=== PATIENT | male | born 1980 | race Caucasian/White ===

== ENCOUNTER 2024-11-01 19:17 | Emergency (ER) | payer OTHER, SELFPAY ==
[2024-11-01] VITALS (7 sets, daily range): BP systolic 126–147; BP diastolic 94–107; PULSE 74–83; RESP 14–18; TEMP 36.6; O2SAT 96–98
--- NOTE | 2024-11-01 19:28 | ED_ITS ---
HPI - General Adult General Chief complaint: Unspecified Stated complaint: High BP Time Seen by Provider: 11/01/24 19:23 Source: patient Mode of arrival: ambulatory Limitations: no limitations History of Present Illness HPI narrative: 44 year old male presents to the Emergency Department complaining of blood pressure elevated today. History of hypertension. Takes Lisinopril 10 mg every day, and has had it today. Denies chest pain, shortness of breath. Had a little bit of headache. No visual changes. States he had a sudden gush of blood from right nares. last for few seconds and stopped spontaneously. No recent cough or cold symptoms. Onset (ago): hour(s) Relieving factors: none Exacerbating factors: none Associated symptoms: denies other symptoms Related Data Home Medications ?Medication ?Instructions ?Recorded ?Confirmed ?Last Taken ?Type lisinopril 10 mg tablet 10 mg PO DAILY 11/01/24 11/01/24 Unknown History venlafaxine 100 mg tablet 150 mg PO TID 11/01/24 11/01/24 Unknown History Allergies Allergy/AdvReac Type Severity Reaction Status Date / Time No Known Allergies Allergy Verified 11/01/24 20:15 Review of Systems Review of Systems: All systems reviewed & are unremarkable except as noted in HPI and below Constitutional: Constitutional: Reports as per HPI and Reports no additional constitutional complaints Eyes: Eyes: Reports as per HPI and Reports no additional eye complaints ENT: Reports system reviewed and no additional complaints, except as documented and Reports epistaxis (for few seconds, resolved spontaneously) Cardiovascular: Cardiovascular: Reports as per HPI, Denies chest pain, Denies chest pain at rest, Denies chest pain with activity, Denies rapid heart rate, Denies irregular heart rhythm, Denies lightheadedness, Denies dyspnea and Denies slow heart rate Respiratory: Respiratory: Reports as per HPI and Denies dyspnea Gastrointestinal: Gastrointestinal: Reports as per HPI, Denies abdominal pain, Denies diarrhea, Denies nausea and Denies vomiting Genitourinary: Genitourinary: Reports no additional male genitourinary complaints Musculoskeletal: Musculoskeletal: Reports no additional musculoskeletal complaints Integumentary/Breasts: Skin/Breast: Reports system reviewed and no additional complaints, except as docu Neurologic: Reports system reviewed and no additional complaints, except as documented, Denies dizziness and Denies Other visual disturbances Endocrine: Endocrine: Reports no additional endocrine complaints Hematologic/Lymphatic: Hematologic/Lymphatic: Reports no additional hematologic/lymphatic complaints Allergic/Immunologic: Allergic/Immunologic: Reports no additional allergic/immunologic complaints Exam Const: General: healthy appearing, no acute distress, well developed and alert HENMT: Head: normal to inspection Face/Nose/Sinus: Normal external nose present, Abnormal mucous membranes and turbinates present (mild hyperemia right nasal mucosa) and normal facial exam Mouth: Yes Normal oral and palatal mucosa present Throat: posterior oropharynx normal Eyes: General: appearance normal, both eyes and all related structures Pupils: Equal, round and reactive pupils present EOM: EOMs intact bilaterally Neck: Neck: normal visual inspection, no meningeal signs and no JVD Thyroid: thyroid normal Carotids: no bruits Chest: Chest palpation & inspection: normal inspection of the chest Resp: Effort & Inspection: normal respiratory effort Auscultation: clear to auscultation bilaterally Cardio: Jugular venous distension: no JVD Rate: regular rate Rhythm: regular rhythm GI: Inspection: normal to inspection and non-distended GI Palp: No Tenderness to palpation present (GI) : General: Yes no CVA tenderness Skin: General skin exam: turgor normal Neuro: General: patient oriented x3, no focal motor deficits and CN's II-XI intact bilaterally Extrem: General: normal to inspection and no clubbing, cyanosis or edema Psych: Appearance: grossly normal Course Course Emergency Course: 44 y/o male presents to the ED c/o elevated blood pressure. Hx HTN, takes Lisinopril. Had epistaxis R nares for several seconds, which resolved spontaneously. PE: R nares hyperemic, o/w unremarkable EKG: NSR, 70, NAC Tx: BP monitor [trending down, last 128/94] Instructions Vital Signs Vital signs: Vital Signs Temperature 36.6 C 11/01/24 19:19 Pulse Rate 82 11/01/24 19:19 Respiratory Rate 16 11/01/24 19:19 Blood Pressure 147/107 H 11/01/24 19:19 Pulse Oximetry 97 11/01/24 19:19 Oxygen Delivery Room Air 11/01/24 19:19 Temperature 36.6 C 11/01/24 19:19 Pulse Rate 78 11/01/24 20:01 Respiratory Rate 17 11/01/24 20:01 Blood Pressure 128/94 H 11/01/24 20:01 Pulse Oximetry 97 11/01/24 20:01 Oxygen Delivery Room Air 11/01/24 19:35 Medical Decision Making Vital Signs Vital Signs: Vital Signs Temperature 36.6 C 11/01/24 19:19 Pulse Rate 82 11/01/24 19:19 Respiratory Rate 16 11/01/24 19:19 Blood Pressure 147/107 H 11/01/24 19:19 Pulse Oximetry 97 11/01/24 19:19 Oxygen Delivery Room Air 11/01/24 19:19 Temperature 36.6 C 11/01/24 19:19 Pulse Rate 78 11/01/24 20:01 Respiratory Rate 17 11/01/24 20:01 Blood Pressure 128/94 H 11/01/24 20:01 Pulse Oximetry 97 11/01/24 20:01 Oxygen Delivery Room Air 11/01/24 19:35 Discharge Plan Discharge Clinical Impression: Hypertension, Epistaxis Patient Disposition: Home, Self-Care Condition: Stable Instructions: Nosebleed (ED), Hypertension (ED) Additional Instructions: Rest Keep diary of your blood pressure readings for you Primary Care Physician to review If nose bleeds again, apply direct pressure, or use cotton ball soaked with Afrin or NeoSynephrine to control Follow up Primary Care Physician Return as needed Patient Language: [place]ic Follow-up/Referrals: [place],Lyn Johnson MD [Primary Care Provider] - Time of Disposition: 20:18
--- NOTE | 2024-11-01 19:32 | ECG_ITS ---
Test Date: 2024-11-01 19:55:01 Measurements Intervals [place] Rate: 70 P: 19 DE: 135 QRS: -23 QRSD: 94 T: 49 QT: 374 QTc: 406 Interpretive Statements SINUS RHYTHM BORDERLINE LEFT AXIS DEVIATION [QRS AXIS < -20] INCOMPLETE RIGHT BUNDLE BRANCH BLOCK [90+ ms QRS DURATION, TERMINAL R IN V1/V2, 40+ ms S IN I/aVL/V4/V5/V6] No previous ECG available for comparison Electronically Signed On 11-03-2024 12:33:03 [employer]OLOG[employer] SALES REPRESENTATIVE by Asa Jimenes M.D.
--- NOTE | 2024-11-01 19:37 | PC.NURSE ---
PLACED ON SCREEN PR[employer]ING [employer]ER.
--- NOTE | 2024-11-01 20:08 | PC.NURSE ---
PATIENT RESTING QUIETLY ON STRETCHER WITH AT HIS SIDE. CALL LIGHT IN REACH. DR FLANAGAN AT THE BEDSIDE. UPDATED ON VITALS THAT HAVE BEEN RECORDED
== END 2024-11-01 20:42 | disposition home or self-care (01) ==
PROVIDERS: Emergency Provider Emergency Medicine; PCP Internal Medicine
DX: I10 Essential (primary) hypertension (principal); R04.0 Epistaxis; Z79.899 Other long term (current) drug therapy
CPT/HCPCS: 93005; 99283

== ENCOUNTER 2025-03-10 13:34 | Emergency (ER) | payer OTHER, SELFPAY ==
--- NOTE | ~2025-03-10 | XR_ITS ---
EXAMINATION: XR chest 1V portable 03/10/2025 13:48 INDICATION: Left-sided chest pain PROCEDURE: AP portable chest COMPARISON: 09/25/2010 FINDINGS: The lungs are clear. The cardiomediastinal silhouette is within normal limits. There are no pleural effusions. There is no pneumothorax suspected. IMPRESSION: 1: NO ACUTE CARDIOPULMONARY DISEASE. Reviewed, dictated and finalized at location A.
[2025-03-10 13:34] VITALS: BP 139/96; PULSE 80; RESP 16; TEMP 36.5; O2SAT 99
--- NOTE | 2025-03-10 13:35 | ECG_ITS ---
Test Date: 2025-03-10 13:43:49 Measurements Intervals [place] Rate: 70 P: 15 SD: 134 QRS: 15 QRSD: 106 T: 47 QT: 375 QTc: 405 Interpretive Statements SINUS RHYTHM Compared to ECG 11/01/2024 19:55:01 Incomplete right bundle-branch block no longer present Electronically Signed On 03-10-2025 15:01:48 CDT by Asa Jimenes M.D.
[2025-03-10 13:36] VITALS: PULSE 73
--- OUTSIDE RECORDS SUMMARY | 2025-03-10 13:36 | XMS_ITS | Data Portability ---
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 Blood pressure was rechecked today and I got a little higher yet at 142/100. I think he needs to go back on the blood pressure medication lisinopril. I placed him back on the 5 mg tablet. He will monitor his blood pressure several times per week. We discussed risks versus benefits and possible side effects medication. 2. I have placed him on the Chantix and gave him 3 months of refills. We discussed risk first benefits and possible side effects medication. If he wants to continue it longer than 3 months to study show that there can be long-term benefit. 3. His labs are being done today. I will let him know those results either by mail or by phone. 4. He needs refill of a atorvastatin sent to the pharmacy today. That is done for 6 months. Discussed with the patient they will be notified of results by patient portal or by mail. They will be notified of results by phone, only if results require immediate attention. Patient verbalizes understanding and agreement with the treatment plan. Patient will continue to follow-up for acute health issues and routine medication checks. [email or web address] Not available 07/19/2024 16:36:35 12/09/2024 12/09/2024 Discussed otitis externa. Placed him on ofloxacin drops. Discussed proper application by having the right ear faced towards the ceiling applying the 5 drops and leaving it sit in the ear for at least 5 minutes. There is no need to put cotton in the ear. We discussed risk first benefits and possible side effects medication. If he does not see improvements by Thursday or Thursday he should call for further guidance. If he has worsening of symptoms he should follow-up sooner. I do want him to make a follow-up appointment for right around 10 days to take a look at that ear since we could not visualize the tympanic membrane. Patient verbalizes understanding and agreement with the treatment plan. Patient will continue to follow-up for acute health issues and routine medication checks. [email or web address] Not available 12/09/2024 11:38:29 12/23/2024 12/23/2024 The otitis externa has resolved. He should not use Q-tips in the ears. We will get him referred to Dr. Castro here at [facility] for colonoscopy. We will let him know that appointment time. Patient verbalizes understanding and agreement with the treatment plan. Patient will continue to follow-up for acute health issues and routine medication checks. [email or web address] Not available 12/23/2024 14:09:21 Plan of Treatment Reminders Order Date Submit Date Provider Last Modified By Organization Details Last Modified Time Details Appointments Acute 15.ACU 2024 04:30P M Dr. Lyn Church Not available Not available Not available Lab None recorded . Referral None recorded . Procedures None recorded . Surgeries None recorded . Imaging None recorded . Medication Orders ofloxaci n 0.3 % ear drops 2024 025 [facility]armacy #[id number], [address] [place], [address], 12/23/2024 13:58:13 Chantix Starting Month Box 0.5 mg (11)-1 mg (42) tablets in dose pack 2023 024 [facility]/Pharmacy #[id number], [address] [place], [address], 12/09/2024 10:50:56 Chantix Continui ng Month Box 1 mg tablet 2023 024 [email or web address] [facility]/Pharmacy #[id number], [address] [place], [address], 12/23/2024 13:58:00 atorvast atin 10 mg tablet 2023 024 [facility]/Pharmacy #[id number], [address] [place], [address], 07/19/2024 14:40:10 lisinopr il 5 mg tablet 2023 025 [facility]/Pharmacy #[id number], [address] [place], [address], 12/09/2024 10:51:06 Patient TargetsNo targets recorded. Patient InstructionsNo instructions recorded. Reason for Referral None Reported. Results Created Date Observation Date Name Description Value Unit Range Abnormal Flag Note LastModifiedBy Organization Detail LastModifiedTime 07/19/2007/19/2024 lipid panel , serum lipid profile Not Available [facility] [address] [place] [address], [address], 07/19/2024 18:36:48 07/19/2007/19/2024 lipid panel , serum cholesterol 217 mg/dL <25-20 0 high Not Available [facility] [address] [place] [address], [address], 07/19/2024 18:36:48 07/19/2007/19/2024 lipid panel , serum triglyceride 266 mg/dL 15-200 high Not Available [facility] [address] [place] [address], [address], 07/19/2024 18:36:48 07/19/2007/19/2024 lipid panel , serum HDL 33 mg/dL >40 low Not Available [facility] [address] [place] [address], [address], 07/19/2024 18:36:48 07/19/20 24 07/19/2024 lipid panel , serum LDL, calculated 131 mg/dL 5-100 high Not Available [facility] [address] [place] [address], [address], 07/19/2024 18:36:48 07/19/2007/19/2024 lipid panel , serum VLDL 53 mg/dL 1-40 high Not Available [facility] [address] [place] [address], [address], 07/19/2024 18:36:48 07/19/2007/19/2024 lipid panel , serum chol/HDL 6.6 ratio 0.0-4. 4 high Not Available [facility] [address] [place] [address], [address], 07/19/2024 18:36:48 07/19/2007/19/2024 CMP, serum or plasm a comp. met. panel Not Available [facility] [address] [place] [address], [id number], 07/19/2024 18:39:46 07/19/2007/19/2024 CMP, serum or plasm a sodium 139 mmol/ L 136-14 6 Not Available [facility] [address] [place] [address], [address], 07/19/2024 18:39:46 07/19/2007/19/2024 CMP, serum or plasm a potassium 3.6 mmol/ L 3.5-5. 1 Not Available [facility] [address] [place] [address], [address], 07/19/2024 18:39:46 07/19/2007/19/2024 CMP, serum or plasm a chloride 107 mmol/ L 98-110 Not Available [facility] [address] [place] [address], [address], 07/19/2024 18:39:46 07/19/20 24 07/19/2024 CMP, serum or plasm a CO2 28 mEq/L 20-32 Not Available [facility] [address] [place] [address], [address], 07/19/2024 18:39:46 07/19/2007/19/2024 CMP, serum or plasm a anion gap 8 mmol/ L 10-22 low Not Available [facility] [address] [place] [address], [address], 07/19/2024 18:39:46 07/19/2007/19/2024 CMP, serum or plasm a glucose 111 mg/dL 70-100 high Not Available [facility] [address] [place] [address], [address], 07/19/2024 18:39:46 07/19/2007/19/2024 CMP, serum or plasm a calcium 9.8 mg/dL 8.4-10 .4 Not Available [facility] [address] [place] [address], [address], 07/19/2024 18:39:46 07/19/2007/19/2024 CMP, serum or plasm a total protein 6.9 g/dL 6.4-8. 3 Not Available [facility] [address] [place] [address], [address], 07/19/2024 18:39:46 07/19/2007/19/2024 CMP, serum or plasm a albumin 4.6 g/dL 3.5-5. 3 Not Available [facility] [address] [place] [address], [address], 07/19/2024 18:39:46 07/19/2007/19/2024 CMP, serum or plasm a ALP 92 U/L 44 - 127 Not Available [facility] [address] [place] [address], [address], 07/19/2024 18:39:46 07/19/2007/19/2024 CMP, serum or plasm a AST (SGOT) 23 U/L 10-40 Not Available [facility] [address] [place] [address], [address], 07/19/2024 18:39:46 07/19/2007/19/2024 CMP, serum or plasm a total bilirubin 0.5 mg/dL 0.2-1. 0 Not Available [facility] [address] [place] [address], [address], 07/19/2024 18:39:46 07/19/2007/19/2024 CMP, serum or plasm a ALT (SGPT) 30 U/L 8-35 Not Available [facility] [address] [place] [address], [address], 07/19/2024 18:39:46 07/19/2007/19/2024 CMP, serum or plasm a BUN 12 mg/dL 7-21 Not Available [facility] [address] [place] [address], [address], 07/19/2024 18:39:46 07/19/2007/19/2024 CMP, serum or plasm a creatinine 1.0 mg/dL 0.7-1. 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 ) Not Available [facility] [address] [place] [address], [address], 07/19/2024 18:39:46 Result Notes None recorded. Problems Name Problem SNOMED Code Status Onset Date Resolution Date Notes Provider Name and Address Organization Details Recorded Time Benign essentia l hyperten sunday 3379640 Active 2023 Calos Aleman PA-C [address] [place] [address], [address], [facility] 4 14:35:53 Erectile dysfunct ion 808741283 Completed 202307/19/2024 Calos Aleman PA-C [address] [place] [address], [address], [facility] 4 16:37:15 Gastroes ophageal reflux disease 536261053 Completed 202307/19/2024 Calos Aleman PA-C [address] [place] [address], [address], [facility] 4 16:37:24 Chronic pain 20211282 Completed 202307/19/2024 Calos Aleman PA-C [address] [place] [address], [address], [facility] 4 16:37:43 Anxiety 25363227 Completed 202307/19/2024 Calos Aleman PA-C [address] [place] [address], [address], [facility] 4 16:37:51 Low back pain 795179645 Active 2023 Calos Aleman PA-C [address] [place] [address], [address], [facility] 4 10:40:18 Acute otitis externa of right ear 98720011916 09729 Active 2024 Calos Aleman PA-C [address] [place] [address], [address], [facility] 5 10:59:14 Hyperlip idemia 04415209 Active [address] [facility] 4 02:52:17 Problem Notes None recorded. Procedures Surgical History Date Name Laterality Status Provider Name and Address Organization Details Recorded Time laparoscopic cholecystectomy completed Calos Aleman PA-C [address] [place] [address], [phone], [facility] 07/19/2024 16:38:57 procedure on ankle completed Freddy Aleman PA-C [address] [place] [address], [phone], [facility] 07/19/2024 16:39:54 Imaging Results None recorded. Procedure Notes None recorded. Medical Equipment None Reported. Allergies Allergen ID Allergen Name Allergen Category Reaction Reaction Severity Criticality Documentation Date Start Date Code Code System Note Provider Name and Address Organization Details Recorded Time 386237 varenicli ne tartrate medicatio n rash Not available Not available 11/09/20232019 55850 4 RxNorm React ion: Rash; Not Available [facility] 4 23:27:43 Medications Name Sig Start Date Stop Date Status Note LastModified by Organization Details LastModified Time sildenafil 50 mg tablet TAKE 1 TABLET 1 HOUR BEFORE NEEDED. MAX 2 TABLETS IN A 24 HOUR PERIOD. 07/19 completed Not Available Not Available Not Available atorvastati n 10 mg tablet TAKE 1 TABLET BY MOUTH EVERYDAY AT BEDTIME active Not Available Not Available No t Available venlafaxine ER 150 mg capsule,ext ended release 24 hr TAKE 1 CAPSULE BY MOUTH EVERY DAY active Not Available Not Available No t Available ofloxacin 0.3 % ear drops INSTILL 5 DROPS AFFECTED EAR (S) TWICE A DAY FOR 10 DAYS 12/23 completed Not Available Not Available Not Available amoxicillin 875 mg tablet TAKE 1 TABLET BY MOUTH TWICE A DAY FOR 5 DAYS 12/23 completed Not Available Not Available Not Available lisinopril 10 mg tablet TAKE 1 TABLET BY MOUTH EVERY DAY active Not Available Not Available No t Available lisinopril 5 mg tablet TAKE 1 TABLET BY MOUTH EVERY DAY 12/09 completed Not Available Not Available Not Available lorazepam 1 mg tablet TAKE 1/2 TO 1 TABLET 3 TIMES DAILY NEEDED. active Not Available Not Available No t Available tadalafil 10 mg tablet TAKE 1 TABLET 30 MINUTES BEFORE ACTIVITY NEEDED. active Not Available Not Available No t Available varenicline tartrate 1 mg tablet TAKE 1 TABLET BY MOUTH TWICE A DAY 12/23 completed Not Available Not Available Not Available Vitals Date Recorded Body height Body mass index (BMI) Body weight Body temperature Heart rate Oxygen saturation Oxygen saturation in Arterial blood by Pulse oximetry Systolic blood pressure Diastolic blood pressure Provider Name and Address Organization Details Last Updated DateTime 5 180.34 cm 30.7 kg/m2 30978.3 2 g 97.7 [degF] 62 /min 99 % 99 % 124 mm[Hg] 88 mm[Hg] [facility] 5 10:50:09 Date Recorded Body height Body mass index (BMI) Body weight Body temperature Heart rate Oxygen saturation Oxygen saturation in Arterial blood by Pulse oximetry Systolic blood pressure Diastolic blood pressure Provider Name and Address Organization Details Last Updated DateTime 5 180.34 cm 30.8 kg/m2 838957. 91 g 98.4 [degF] 77 /min 97 % 97 % 118 mm[Hg] 80 mm[Hg] [facility] 5 13:57:27 Date Recorded Body height Body mass index (BMI) Body weight Body temperature Systolic blood pressure Diastolic blood pressure Provider Name and Address Organization Details Last Updated DateTime 4 180.34 cm 31.2 kg/m2 470179. 69 g 97.7 [degF] 138 mm[Hg] 96 mm[Hg] Christie Gray [facility] 4 14:08:05 Social History Question Answer Notes LastModified by Organizat ion Details LastModified Time Tobacco Smoking Status Former Smoker Not Available Health Note 09/09/2024 09:51:38 Do You Have An Advance Directive? No [email or web address] Information not available 09/09/2024 What Is Your Level Of Caffeine Consumption? Moderate [email or web address] Information not available 09/09/2024 How Many Times Per Week Do You Exercise? Less Than 1 Time Per Week [email or web address] Information not available 09/09/2024 When Did You Quit Smoking? Month Ago [email or web address] Information not available 09/09/2024 What Was The Date Of Your Most Recent Tobacco Screening? 09/14/2024 [email or web address] Information not available 09/09/2024 What Is Your Relationship Status? [email or web address] Information not available 09/09/2024 Sex: Unknown Functional Status Question Answer Note LastModified by Organizat ion Details LastModified Time Do you use any illicit or recreational drugs? No [email or web address] Information not available 09/09/2024 What is your level of alcohol consumption? None [facility]-[email or web address] Information not available 09/09/2024 Are you currently employed? 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 None [email or web address] Information not available 09/09/2024 Mental Status None recorded. Family History Relationship Description Onset Age of this Age Resolved Age Notes LastModified by Organization Details LastModified Time Father Polyp of colon [email or web address] Not available 2023 16:38:04 Father Hypertensive disorder [email or web address] Not available 2023 16:38:11 Father Diabetes mellitus [email or web address] Not available 2023 16:38:17 Father Atrial fibrillation [email or web address] Not available 05/2024 16:38:25 Father Heart disease [email or web address] Not available 2023 09:51:37 Sister Cerebrovascu lar accident [email or web address] Not available 05/2024 16:38:44 Mother Heart disease [email or web address] Not available 2023 09:51:37 Maternal Grandfather Heart disease [email or web address] Not available 2023 09:51:37 Maternal Grandmother Heart disease [email or web address] Not available 2023 09:51:37 Medical History Condition Response Diabetes N Anxiety Disorder Y Bleeding Disorder N Attention-deficit Hyperactivity Disorder N High Blood Pressure Y Arthritis N Hyperlipidemia N Cancer N Stroke N Thyroid Problems N Asthma N Depression Y COPD N Anemia N Seizures N Heart Disease N Fibromyalgia N Osteoporosis N Kidney Disease N Immunizations Vaccine Type Date Status Note Provider Nam e and Address Organization Details Recorded Time Influenza, split virus, quadrivalent, preservative 0 completed [facility] 10:50:33 COVID-19, mRNA, LNP-S, PF, 30 mcg/0.3 mL dose 1 completed Elinor Horton null, [facility] 12/09/2024 10:50:33 COVID-19, mRNA, LNP-S, PF, 30 mcg/0.3 mL dose 1 completed Elinor Horton null, [facility] 12/09/2024 10:50:33 COVID-19, mRNA, LNP-S, PF, 30 mcg/0.3 mL dose 1 completed [facility] 12/09/2024 10:50:33 COVID-19, mRNA, LNP-S, PF, 30 mcg/0.3 mL dose, karolina-sucrose 2 completed Elinor rocha, [facility] 12/09/2024 10:50:33 Tdap [address] [facility] 12/09/2024 10:50:33 Past Encounters Encounter ID Performer Location Encounter Start Date Encounter Closed Date Diagnosis/Indication Diagnosis SNOMED-CT Code Diagnosis ICD10 Code Diagnosis Note [id number] [facility] ([place] [address] 07/19/2024 13:51:19 07/19/2024 14:43:13 Ready to stop smoking 403895552 Z72.0 Benign ess ential hypertension 5294312 I10 Hyperlipidemia 13884174 E78.5 Long-term current use of drug therapy 772902228 Z79.899 Additional diagnosis detail: Other fdc (current) drug therapy [id number] [facility] [place] [address] 12/09/2024 10:35:16 12/09/2024 11:38:49 Acute otitis externa of right ear 6976874526 480875 H60.501 [id number] [facility] [address] [facility] [place] [address] 12/23/2024 13:52:10 12/23/2024 15:18:26 Screening for malignant neoplasm of colon 780468398 Z12.11 Acute otit is externa of right ear 0919638651 817425 H60.501 Health Concerns Section Related Observation LastModified by Organization Detai ls LastModified Time None Recorded Concern Status LastModified by Organization Details LastModified Time None Recorded Advance Directives Directive N: Payers Insurance Date Sequence Insurance Name Policy Number Policy Le Covered Member ID Le Member ID Guarantor Name 07/20/2024 1 [employer] - [facility] [employer] [id number] Calos Montgomery [id number] Calos Montgomery 02/26/2025 1 [employer] (POS II) [id number] Calos Montgomery [id number] Calos Montgomery Notes Date Note Type Note Provider Name and Address Organization Details Recorded Time 4 text/html The patient comes in today with complaint of elevated blood pressure and wanting to quit smoking. He quit smoking 3 years ago. He has done several times with Chantix. Chantix works very well for him. Takes about a week few days before he loses that benefit of the nicotine. He was off the cigarettes for 3 years this time and 3 months ago he picked up the cigarette again and wants to stop. He does have dreams with the Chantix but it is not bothersome to him. He feels that his blood pressure has been up. He was previously on blood pressure medication lisinopril. He does not remember have any problems with the medication. He gets just mild headache and just does not feel well when his blood pressure is up. He has not been checking it. He several years and lost about 60 pounds and was able to get off the medication. He is put about 30 of those pounds back on. He also started smoking again which he knows can elevate his blood pressure. He denies any blurred vision or double vision, numbness, tingling or weakness. No chest pains or shortness of breath. He does have orders in the lab from last visit. He has yet to get those done and will get them performed today. It is a metabolic panel and lipid panel. Calos Aleman PA-C [address] [place] [address], [phone], [facility] 07/20/2024 16:35:49 5 text/html Calos Dixon a 44 year oldmalepresenting for care. Patient was at the urgent care 2 weeks ago. He was diagnosed with a Right sided ear infection. His symptoms at that time were pain when he touched his ear. He had had discharge from the ear. He saw resolution of the pain after taking the amoxicillin but he continues to have drainage and reduced hearing from that right ear. He has not had fevers or chills. He denies other upper respiratory symptoms. He had a lot of ear infections as a child but never had tubes. Calos Aleman PA-C [address] [place] [address], [phone], [facility] 12/09/2024 11:38:42 5 text/html Calos Dixon a 44 year oldmalepresenting for care. The patient is here for a 2-week follow-up on the right otitis externa. I placed him on Cipro drops 2 weeks ago. He used them for 1 week. He feels that symptoms are completely resolved at this point. He is hearing fine and there has been no drainage from the ear. That was a follow-up from an urgent care visit where he was placed on amoxicillin for the ear infection. He also wanted to bring up that his sister was recently diagnosed with colon cancer. She is 46 years old. The patient turns for 45 in a couple weeks. He wants to get in to see GI for colonoscopy. Calos Aleman PA-C [address] [place] [address], [phone], [facility] 12/23/2024 14:10:17
--- NOTE | 2025-03-10 13:38 | ED_ITS ---
HPI - Chest Pain General Chief Complaint: Chest Pain Stated Complaint: chest tightness Time Seen by Provider: 03/10/25 13:35 Source: patient Mode of arrival: ambulatory Limitations: no limitations History of Present Illness HPI narrative: patient is a 45-year-old male with some left-sided chest pain that is sharp and reproducible in nature. It does radiate to his shoulder blade on the left. No numbness or tingling on his face or arm. No shortness of breath. He does have some family history with CAD and stents and they were around their 50s and 60s. The patient himself does not have any history of CAD. He has not had cardiac workups. MD complaint: chest pain Pertinent past history: other ( Hypertension) Onset (ago): week(s) ( 3) Timing of current episode: episodic, daily and still present Prior episodes: Yes Onset: during rest, during exertion and after eating Pain location: left chest Pain radiation: back and left scapula Severity: mild Pain scale (0-10): 5 Quality: sharp Relieving factors: nothing Exacerbating factors: palpation and movement Context: other ( patient having continued left-sided chest pain for the past 3 weeks has come for evaluation.) Treatment prior to arrival: none Risk Factors Coronary artery disease risk factors: hypertension Thoracic aortic dissection risk factors: none Related Data Home Medications ?Medication ?Instructions ?Recorded ?Confirmed ?Last Taken ?Type lisinopril 10 mg tablet 10 mg PO DAILY 11/01/24 11/01/24 Unknown History venlafaxine 100 mg tablet 150 mg PO TID 11/01/24 11/01/24 Unknown History Allergies Allergy/AdvReac Type Severity Reaction Status Date / Time No Known Allergies Allergy Verified 03/10/25 13:43 Review of Systems 2 Review of Systems: All systems reviewed & are unremarkable except as noted in HPI and below Constitutional: Constitutional: Reports no additional constitutional complaints Eyes: Eyes: Reports no additional eye complaints ENT: Reports system reviewed and no additional complaints, except as documented Cardiovascular: Cardiovascular: Reports no additional cardiovascular complaints Gastrointestinal: Gastrointestinal: Reports no additional gastrointestinal complaints Genitourinary: Genitourinary: Reports no additional male genitourinary complaints Musculoskeletal: Musculoskeletal: Reports no additional musculoskeletal complaints Integumentary/Breasts: Skin/Breast: Reports system reviewed and no additional complaints, except as docu Neurologic: Reports system reviewed and no additional complaints, except as documented Psychiatric: Psychiatric: Reports no additional psychiatric complaints Endocrine: Endocrine: Reports no additional endocrine complaints Hematologic/Lymphatic: Hematologic/Lymphatic: Reports no additional hematologic/lymphatic complaints Exam 2 Const: General: healthy appearing Nutritional Appearance: well nourished Orientation/consciousness: patient oriented x3 HENMT: Head: normal to inspection Ears: external ears normal F darlin/Nose/Sinus: Normal external nose present Eyes: Conjunctivae: conjunctivae normal Pupils: Equal, round and reactive pupils present EOM: EOMs intact bilaterally Neck: Neck: normal visual inspection Chest: Chest palpation & inspection: normal inspection of the chest and tenderness sternum and costal cartilage Resp: Effort & Inspection: normal respiratory effort and not labored A uscultation: clear to auscultation bilaterally and no crackles Cardio: Rate: regular rate Rhythm: regular rhythm Heart sounds: no murmurs GI: Inspection: non-distended GI Palp: Yes Soft to palpation and No Tenderness to palpation present (GI) Auscultation: normal bowel sounds : General: Yes bladder normal to palpation Back/Spine/Pelvis: Back: no CVA tenderness Skin: General skin exam: normal color Rashes: no rashes Wounds: no wounds Neuro: General: patient oriented x3 Cranial nerves: Yes Nystagmus not present Speech: normal speech Gait exam (Neuro): Normal gait present Extrem: General: normal to inspection Psych: Mental Status: mental status grossly normal Affect: normal affect Attitude: cooperative Course Vital Signs Vital signs: Vital Signs Temperature 36.5 C 03/10/25 13:34 Pulse Rate 80 03/10/25 13:34 Respiratory Rate 16 03/10/25 13:34 Blood Pressure 139/96 H 03/10/25 13:34 Pulse Oximetry 99 03/10/25 13:34 Oxygen Delivery Room Air 03/10/25 13:34 Temperature 36.5 C 03/10/25 13:34 Pulse Rate 73 03/10/25 13:36 Respiratory Rate 16 03/10/25 13:34 Blood Pressure 139/96 H 03/10/25 13:34 Pulse Oximetry 99 03/10/25 13:34 Oxygen Delivery Room Air 03/10/25 13:34 MDM - Chest Pain MDM Narrative Medical decision making narrative: Patient is a 45-year-old male with chest pain. We will do a cardiac workup at this time. Lab Data Attestation: I reviewed the patient's lab results. 03/10/25 13:49 03/10/25 13:49 Labs: Lab Results 03/10/25 Range/Units 13:49 WBC 8.7 (4.8-10.8) K/mm3 RBC 5.84 (4.70-6.10) M/mm3 Hgb 16.4 (14.0-18.0) g/dL Hct 47.5 (40.0-54.0) % MCV 81.3 (78.0-102.0) fL MCH 28.1 (27.0-31.0) pg MCHC 34.5 (32-36) g/dL RDW 12.1 (11.6-14.4) % Plt Count 218 (150-420) K/mm3 MPV 10.6 (8.7-11.0) fl Immature Gran % (Auto) 0.5 H (0.0-0.0) % Neut % (Auto) 70.0 (50.0-70.0) % Lymph % (Auto) 21.2 (18.0-42.0) % [place] % (Auto) 6.2 (2.0-11.0) % Eos % (Auto) 1.4 (1.0-6.0) % Baso % (Auto) 0.7 (0.0-1.0) % Lymph # (Auto) 1.84 (1.10-4.50) K/mm3 [place] # (Auto) 0.54 (0.10-0.90) K/mm3 Eos # (Auto) 0.12 (0.02-0.50) K/mm3 Baso # (Auto) 0.06 (0.00-0.10) K/mm3 Abs Immat Gran (auto) 0.04 H (0.00-0.00) K/mm3 Absolute Neuts (auto) 6.09 (1.70-7.20) K/mm3 Absolute Nucleated RBC 0.00 (0.00-0.00) K/mm3 Nucleated RBC % 0.0 (0-0.0) % PT 10.7 (9.50-12.1) Seconds INR 1.0 APTT 28.3 (23.9-30.70) Sec Sodium 139 (137-145) mmol/L Potassium 4.0 (3.4-5.0) mmol/L Chloride 107 (98-107) mmol/L Carbon Dioxide 28 (22-30) mmol/L Anion Gap 4 (4-12) mmol/L BUN 13 (9-20) mg/dL Creatinine 1.03 (0.7-1.3) mg/dL Estim Creat Clear Calc 96 ml/min Estimated GFR > 60 (59 - ) Glucose 98 (65-110) mg/dL Calculated Osmolality 288 (285-295) mOsm/kg Calcium 9.1 (8.4-10.2) mg/dL Total Bilirubin 0.7 (0.2-1.3) mg/dL AST 29 (17-59) U/L ALT 29 (6-50) U/L Alkaline Phosphatase 73 (38-126) U/L NT-Pro-B Natriuret Pep < 20 (19.9-100) pg/mL Total Protein 7.4 (6.3-8.2) g/dL Albumin 4.5 (3.5-5.1) g/dL Imaging Data Attestation: I personally reviewed and interpreted this imaging study as follows: Radiologist's impression: Chest x-ray is negative for acute process ECG Data EKG #1: Attestation: I personally reviewed and interpreted this ECG as follows: ECG completion date: 03/10/25 ECG completion time: 14:14 EKG Interpretation: normal rate, sinus rhythm, no ectopy, no ST changes, normal QRS, normal QT and NL axis Discharge Plan Discharge Clinical Impression: Atypical chest pain, Acute costochondritis Patient Disposition: Home Condition: Stable Instructions: Chest Pain (ED), Costochondritis (ED), Antibiotic Form Additional Instructions: please follow-up with the primary doctor in the next week. I highly suggest further outpatient testing to include a stress test in the next few weeks. Aspirin daily suggested. Come back to the ER with any worse or changing symptoms. Patient Language: [place] Prescriptions: No Action lisinopril 10 mg tablet 10 mg PO DAILY venlafaxine 100 mg tablet 150 mg PO TID Follow-up/Referrals: Ray,Lyn Johnson MD [Primary Care Provider] - Time of Disposition: 15:01
[2025-03-10 13:54] LABS: Basophils Absolute Auto 0.06 K/mm3 (0.00-0.10); Basophils Percent Auto 0.7 % (0.0-1.0); Eosinophils Absolute Auto 0.12 K/mm3 (0.02-0.50); Eosinophils Percent Auto 1.4 % (1.0-6.0); Hematocrit 47.5 % (40.0-54.0); Hemoglobin 16.4 g/dL (14.0-18.0); Immature Granulocyte Absolute 0.04 K/mm3 (0.00-0.00); Immature Granulocyte Percent A 0.5 % (0.0-0.0); Lymphocytes Absolute Auto 1.84 K/mm3 (1.10-4.50); Lymphocytes Percent Auto 21.2 % (18.0-42.0); Mean Corpuscular HGB Conc 34.5 g/dL (32-36); Mean Corpuscular Hemoglobin 28.1 pg (27.0-31.0); Mean Corpuscular Volume 81.3 fL (78.0-102.0); Mean Platelet Volume 10.6 fl (8.7-11.0); Monocytes Absolute Auto 0.54 K/mm3 (0.10-0.90); Monocytes Percent Auto 6.2 % (2.0-11.0); Neutrophils Absolute Auto 6.09 K/mm3 (1.70-7.20); Platelet Count Result 218 K/mm3 (150-420); Red Blood Count 5.84 M/mm3 (4.70-6.10); Red Cell Distribution Width 12.1 % (11.6-14.4); White Blood Count 8.7 K/mm3 (4.8-10.8)
[2025-03-10 14:06] LABS: Alanine Aminotransferase 29 U/L (6-50); Albumin Level 4.5 g/dL (3.5-5.1); Alkaline Phosphatase 73 U/L (38-126); Anion Gap 4 mmol/L (4-12); Aspartate Amino Transferase 29 U/L (17-59); Bilirubin,Total 0.7 mg/dL (0.2-1.3); Blood Urea Nitrogen 13 mg/dL (9-20); Calcium 9.1 mg/dL (8.4-10.2); Carbon Dioxide 28 mmol/L (22-30); Chloride 107 mmol/L (98-107); Estimated CRCL calculation 96 ml/min; Estimated Glomerular Filt Rate > 60; Glucose 98 mg/dL (65-110); Osmolality Calculated 288 mOsm/kg (285-295); Sodium 139 mmol/L (137-145); Total Protein 7.4 g/dL (6.3-8.2)
[2025-03-10 14:07] LABS: Partial Thromboplastin Time 28.3 Sec (23.9-30.70); Prothrombin Time 10.7 Seconds (9.50-12.1)
[2025-03-10 14:14] LABS: NT Pro B Type Natriuretic Pept < 20 pg/mL (19.9-100)
[2025-03-10 14:27] VITALS: BP 168/88; PULSE 67; RESP 20; O2SAT 94
[2025-03-10 14:29] LABS: Lipase 161 U/L (23-300); Troponin I < 0.012 ng/mL (0.000-0.034)
[2025-03-10 15:03] VITALS: BP 167/84; PULSE 75; RESP 20; O2SAT 95
== END 2025-03-10 15:03 | disposition home or self-care (01) ==
PROVIDERS: Emergency Provider Emergency Medicine; PCP Internal Medicine
DX: M94.0 Chondrocostal junction syndrome [Tietze] (principal)
CPT/HCPCS: 36415; 71045; 80053; 83690; 83880; 84484; 85025; 85610; 85730; 93005; 99284